=== PATIENT | female | born 1985 | race Caucasian/White ===

== ENCOUNTER 2019-05-05 16:58 | Emergency (ER) | payer MEDICAID ==
[2019-05-05] MEDS ORDERED: ALBUTEROL SULFATE (0.083%) 2.5 MG/3 ML NEB INH ONE (17:16)
[2019-05-05] MEDS ORDERED: METHYLPREDNISOLONE PF 125MG/VIAL IVP ONE (17:16)
--- NOTE | 2019-05-05 17:22 | Emergency Department Record ---
History of Present Illness - General Chief Complaint: Asthma Stated Complaint: PHILLIP Time Seen by Provider: 05/05/19 17:06 Source: Patient Mode of Arrival: Stretcher Limitations: No limitations - History of Present Illness Initial Comments: The patient is here due to developing SOB like an asthma attack an hour ago while driving. She has been ill for 2 weeks with a cough and congestion and then while driving developed the SOB. She does have a long hx of asthma and is out of her inhallers. The patient states she has needed to be admitted to the hospital in the past due to the asthma but never to the ICU. She denies any CP, fever, or back pain. MD Complaint: "Asthma attack" Onset/Timin -: Hour(s) Asthma History: Childhood onset Treatments Prior to Arrival: Inhaled bronchodilator, Inhaled steroid - Related Data Home Medications Medication Instructions Recorded Confirmed Last Taken Buspirone HCl [Buspar] 10 mg PO TID 05/05/19 05/05/19 05/05/19 Escitalopram Oxalate [Lexapro] 20 mg PO DAILY 05/05/19 05/05/19 05/05/19 Previous Rx's Medication Instructions Recorded Albuterol Sulfate [Proair Hfa] 2 puff IH QID PRN #1 inhaler 05/05/19 Prednisone [Prednisone 20Mg] 40 mg PO DAILY #8 tab 05/05/19 Allergies Allergy/AdvReac Type Severity Reaction Status Date / Time clindamycin Allergy HIVES Verified 05/05/19 17:13 ibuprofen Allergy VOMITING Verified 05/05/19 17:13 sulfamethoxazole Allergy VOMITING Verified 05/05/19 17:13 [From Bactrim] trimethoprim [From Bactrim] Allergy VOMITING Verified 05/05/19 17:13 Travel Screening - Travel/Exposure Within Last 30 Days Have you traveled within the last 30 days?: No - Travel/Exposure Within Last Year Have you traveled outside the [place] in the last year?: No - Additonal Travel Details Have you been exposed to anyone with a communicable illness?: No - Travel Symptoms Symptom Screening: None Review of Systems Constitutional: Denies: Chills, Fever Eyes: Denies: Eye discharge ENT: Reports: Congestion Respiratory: Reports: Cough, Dyspnea. Denies: Hemoptysis Cardiovascular: Denies: Chest pain Past Medical History - SOCIAL HISTORY Smoking Status: Light tobacco smoker (<10/day) Alcohol Use: None Drug Use Detail:: Opiates - RESPIRATORY Hx Respiratory Disorders: Yes Hx Asthma: Yes (child onset) - CARDIOVASCULAR Hx Cardio Disorders: No - NEURO Hx Neuro Disorders: No - GI Hx GI Disorders: No - Hx Genitourinary Disorders: No - ENDOCRINE Hx Endocrine Disorders: No - MUSCULOSKELETAL Hx Musculoskeletal Disorders: No - PSYCH Hx Psych Problems: No - HEMATOLOGY/ONCOLOGY Hx Hematology/Oncology Disorders: No Family Medical History Any Significant Family History?: No Physical Exam - General General Appearance: Alert, Oriented x3, Cooperative, No acute distress (The patient is resting comfortably speaking full sentences and without any SOB or PHILLIP.) - Head Head exam: Atraumatic, Normocephalic - Eye Eye exam: Normal appearance, PERRL, EOMI - ENT Throat exam: Normal inspection. negative: Tonsillar erythema, Tonsillar exudate - Neck Neck exam: Normal inspection, Full ROM. negative: Tenderness - Respiratory Respiratory exam: Normal lung sounds bilaterally, Wheezes (There are a few mild end expiratory wheezes bilaterally in the lower lobes.). negative: Respiratory distress, Rhonchi, Stridor - Cardiovascular Cardiovascular Exam: Regular rate, Normal rhythm, Normal heart sounds - GI/Abdominal GI/Abdominal exam: Soft, Normal bowel sounds. negative: Tenderness - Extremities Extremities exam: Normal inspection, Full ROM, Normal capillary refill. negative: Tenderness - Neurological Neurological exam: Alert, Normal gait. negative: Abnormal gait, Motor sensory deficit - Psychiatric Psychiatric exam: negative: Anxious Course Vital Signs 05/05/19 17:02 Temperature 98.7 F Pulse Rate 102 H Respiratory 22 Rate Pulse Ox 99 - Reevaluation(s) Reevaluation #1: The patient is doing a lot better at this time. She denies any CP, SOB, PHILLIP, or coughing. She states she feels completely back to normal. On exam her lungs are clear with NO wheezing or rhonchi. Her repeat RA biox is 95-96% and she is ambulating normally and ready for home. 05/05/19 18:17 Medical Decision Making - Data Complexity MDM Data: X-Ray Ordered and/or Reviewed - Radiology Data Radiology results: Report reviewed (CXR: Neg.) Disposition Disposition: Discharge Clinical Impression: Asthma attack Qualifiers: Asthma severity: unspecified severity Asthma persistence: unspecified Qualified Code(s): J45.901 - Unspecified asthma with (acute) exacerbation Disposition: Home, Self-Care Condition: (2) Stable Instructions: Asthma (ED) Additional Instructions: Please continue your inhaller and continue the Prednisone tomorrow. Please see your doctor next week if not better. Return to the ER for any worsening symptoms, pain, fever, or any trouble breathing. Prescriptions: Prednisone [Prednisone 20Mg] 40 mg PO DAILY #8 tab Albuterol Sulfate [Proair Hfa] 2 puff IH QID PRN #1 inhaler PRN Reason: Cough And Difficulty Breathing Forms: Patient Portal Access Time of Disposition: 18:19 Quality - Quality Measures Quality Measures: N/A - Blood Pressure Screening View Details: Yes Does Patient Have Any of the Following: No Blood Pressure Classification: Pre-Hypertensive BP Reading Systolic Measurement: 126 Diastolic Measurement: 72 Screening for High Blood Pressure: < Pre-Hypertensive BP, F/U Documented > [[id number]] Pre-Hypertensive Follow-up Interventions: Referral to alternative/primary care provider.
--- NOTE | 2019-05-05 18:13 | RADIOLOGY REPORT ---
EXAMINATION: Two View Chest Radiographs EXAM DATE: 05/05/2019 5:48 PM TECHNIQUE: Frontal and lateral views INDICATION: cough COMPARISON: 10/20/2015 ENCOUNTER: Not applicable FINDINGS: The heart, mediastinum, and pulmonary vasculature are normal. No lung consolidation or pleural effu sions are present. IMPRESSION: No acute abnormalities in the chest. Dictated by: Heather Cannon MD on 05/05/2019 6:11 PM. .
== END 2019-05-05 18:28 | disposition home or self-care (01) ==
LOC: ER 16:58
DX: J45.901 Unspecified asthma with (acute) exacerbation (principal); F17.210 Nicotine dependence, cigarettes, uncomplicated
CPT/HCPCS: 71046; 94640; 96374; 99284; J2930; J7613